=== PATIENT | male | born 1970 | race Caucasian/White ===

== ENCOUNTER → 2020-07-31 00:32 | Outpatient (CLI) | payer OTHER, SELFPAY ==
[2020-07-31 18:19] LABS: SARS-CoV-2 RNA PCR Negative
== END ==
PROVIDERS: Physician Assistant Medical; PCP Family Medicine; Visit Provider Internal Medicine Critical Care Medicine
DX: Z20.822 Contact with and (suspected) exposure to COVID-19 (principal); R68.89 Other general symptoms and signs
CPT/HCPCS: C9803; U0003; U0005

== ENCOUNTER 2020-08-04 09:22 | Outpatient (CLI) | payer OTHER, SELFPAY ==
--- NOTE | 2020-08-14 12:49 | WPDSLEEPSTUD ---
Sleep Study Date of Study: 08/04/20 Ordering Provider: Heriberto García MD Interpreting Physician: Denisa Zazueta MD Sleep Study Type: Split Polysomnogram Height: 1.8 m Weight: 118.388 kg Body Mass Index: 36.3 Neck Circumference: 48.26 cm Dequincy: 19 Reason for Sleep Study Poor quality sleep after COVID, waking up every few hours, Sleep History Cortez Brennan is a 49 year old male who has had several months of poor quality sleep after COVID. He wakes up every few hours feeling wide awake. He frequently snores and is frequently loud enough that others complain about it. He frequently wakes up at night with heartburn, belching or coughing. He frequently wakes up feeling short of breath. He frequently has trouble sleeping with a cold. He frequently wakes up gasping for breath during the night and has breathing problems at night observed by others. He rarely sweats excessively at night. He occasionally notices his heart pounding or beating irregularly and night. He occasionally falls asleep during the day, occasionally involuntarily rarely while driving. He does not fall asleep during physical effort. He does not have loss of muscle tone was strong emotion. He does not have problems during the day due to excessive sleepiness. 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 He does not feel paralyzed on waking or falling asleep. He frequently has vivid dreamlike scenes upon awakening or falling asleep. He does not feel afraid to go to sleep. He does not have nightmares. He occasionally remembers his dreams. He frequently has racing thoughts. He does not feel sad or depressed. He occasionally has anxiety. He rarely has muscular tension. He occasionally notices parts of his body jerking. He occasionally kicks at night. He does not have crawling or aching feelings in his legs or have any kind of leg pain at night. He does not have morning jaw pain. He does not grind his teeth during sleep. He occasionally has bothered by pain during the day. He rarely is awakened by pain at night. He occasionally wakes up feeling stiff in the morning with sore achy muscles and pain in the neck and spine. He frequently has morning headaches. He has nasal allergies in the spring and has had sinus surgery. He also has heartburn. Normal bedtime is between 10:00 p.m. and 12 midnight, taking 5 minutes but sometimes up to an hour to fall asleep. He typically wakes 3-4 times at night. He is able to return to sleep within 5 minutes but occasionally taking up to 45 minutes. While awake, he goes to the bathroom, gets a drink and sometimes a snack. He wakes between 6:00-7:00 a.m. not always refreshed. He does take naps in the afternoon or evening. A short nap is sometimes refreshing. He is usually drowsy in the morning for 1 hour or longer. Habits: Never smoked tobacco. Caffeine 2-3 per day. One alcoholic beverage a day. No recreational drugs. [facility] Past Medical History Medical History (Updated 08/14/20 @ 13:28 by Denisa Zazueta MD) Acid reflux COVID-19 Hyperlipidemia Seasonal allergies Surgical History Surgical History (Updated 08/14/20 @ 13:00 by Denisa Zazueta MD) History of appendectomy History of sinus surgery Family History Family History Father Family history of diabetes mellitus in first degree relative Family history of coronary artery disease Diabetes mellitus Heart disease Mother Colon cancer Acute myocardial infarction Social History Social History Smoking status: Never smoker Smokeless tobacco user: chewing tobacco Alcohol intake: current Substance use: never 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
[2020-08-14 13:41] VITALS: BMI 36.3
== END 2020-08-04 09:23 | disposition home or self-care (01) ==
LOC: ANHCSM 09:22
PROVIDERS: PCP Family Medicine; Visit Provider Family Medicine
DX: G47.10 Hypersomnia, unspecified (principal); G47.33 Obstructive sleep apnea (adult) (pediatric)
CPT/HCPCS: 95811

== ENCOUNTER 2021-01-30 15:53 | Emergency (ER) | payer OTHER, SELFPAY ==
[2021-01-30 16:06] VITALS: BP 111/79; PULSE 72; RESP 16; TEMP 36; O2SAT 99
--- NOTE | 2021-01-30 17:06 | ED.URI ---
HPI - URI/Sore Throat General Chief Complaint: Upper Respiratory Infection Stated Complaint: runny nose/cough Time Seen by Provider: 01/30/21 17:06 Source: patient Mode of arrival: ambulatory Limitations: no limitations History of Present Illness HPI Narrative: Cortez Rao is a 50 yo male with PMH of high cholesterol who comes to [facility] stating that he wants a Covid test. He has been treated by his primary care physician for a sinus infection with a Z-Harley because he gets the symptoms and wanted to get ahead of it . Patient son's girlfriend was diagnosed positive with being asymptomatic and now he wants a Covid test. We do not test asymptomatic individuals he was set up for a test at [facility] in the drive-through where he will get PCR Related Data Home Medications Medication Instructions Recorded Confirmed rosuvastatin 1 mg PO DAILY 01/30/21 01/30/21 Allergies Allergy/AdvReac Type Severity Reaction Status Date / Time levofloxacin AdvReac Severe Unknown Verified 01/30/21 16:17 rosuvastatin [From Crestor] AdvReac Intermediate Cramping Verified 01/30/21 16:17 of the Muscles Review of Systems Review of Systems: CONSTITUTIONAL: Denies fever, chills, sweats. EYES: Denies visual changes, redness, discharge. ENT: Denies rhinorrhea, congestion, sore throat, otalgia. CARDIOVASCULAR: Denies chest pain, palpitations, edema. RESPIRATORY: Denies dyspnea, wheezing, cough GASTROINTESTINAL: Denies abdominal pain, nausea, vomiting, diarrhea. GENITOURINARY: Denies dysuria, hematuria, abnormal discharge SKIN: Denies rash or itching. NEUROLOGIC: Denies numbness, or focal weakness. PSYCHIATRIC: Denies anxiety or depression. Once a Covid test [facility] Past Medical History Medical History Acid reflux COVID-19 Hyperlipidemia Seasonal allergies Surgical History Surgical History History of appendectomy History of sinus surgery Family History Family History Father Family history of diabetes mellitus in first degree relative Family history of coronary artery disease Diabetes mellitus Heart disease Mother Colon cancer Acute myocardial infarction Social History Social History Smokeless tobacco user: chewing tobacco Second hand tobacco smoke exposure: No Alcohol intake: current Substance use: never Substance use type: does not use 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 There is no relevant family history pertinent to the presenting complaint. Exam Narrative: GENERAL: This is a well-nourished, well-developed patient, in no distress. HEAD: normocephalic, atraumatic. EYES: Sclera clear/white. Vision is grossly intact. EARS: External ears normal, auditory canals clear and without drainage, TMs normal without perforation. Hearing grossly intact. NOSE: External nose normal without nasal discharge, nares without redness, no rhinorrhea. Sounds somewhat congested THROAT: Mucous membranes moist, posterior pharynx pink NECK: Neck supple, CARDIOVASCULAR: Regular rate and rhythm without murmurs, gallops, or rubs. RESPIRATORY: Clear to auscultation. Breath sounds equal bilaterally. No wheezes, rales, or rhonchi. GASTROINTESTINAL: Abdomen soft, SKIN: warm, intact with no suspicious lesions or rash, good texture and turgor. NEURO: awake, alert, and oriented to person, place and time. There were no obvious focal neurologic abnormalities. Steady gait EXTREMITIES: Normal range of motion. BACK: without deformity Course Course Emergency Course: Patient comes here for Covid testing
== END 2021-01-30 17:20 | disposition home or self-care (01) ==
PROVIDERS: Emergency Provider Nurse Practitioner; PCP Family Medicine
DX: R05 Cough (principal); Z20.822 Contact with and (suspected) exposure to COVID-19; F17.220 Nicotine dependence, chewing tobacco, uncomplicated; K21.9 Gastro-esophageal reflux disease without esophagitis; E78.5 Hyperlipidemia, unspecified
CPT/HCPCS: 99211; G0463

== ENCOUNTER 2021-05-17 00:51 | Day surgery (SDC) | payer OTHER, SELFPAY ==
[2021-05-04 13:33] VITALS: BMI 38.9
[2021-05-17 06:54] VITALS: BP 158/108; PULSE 65; RESP 16; TEMP 36.1; O2SAT 95; BMI 40.5
[2021-05-17] MEDS: LACTATED RINGERS 1,000 ML 150 ML IV CONT (07:03)
--- NOTE | 2021-05-17 07:08 | WPDANESEPPF ---
Anes - Initial Pre Proc Eval Procedure: Operation Date: 05/17/21 08:00 Proposed Procedures p Screening Colonoscopy - Osvaldo Rodriguez MD Date/Time: 05/17/21 07:08 Surgeon: Osvaldo Rodriguez MD Pre Op Diagnosis: family hx of colon ca Patient Data Age: 50 Gender: M Height: 1.78 m Weight: 128.1 kg Last Vital Signs Temp 96.9 F L 05/17/21 06:54 Pulse 65 05/17/21 06:54 Resp 16 05/17/21 06:54 BP 158/108 H 05/17/21 06:54 Pulse Ox 95 05/17/21 06:54 Allergies Allergy/AdvReac Type Severity Reaction Status Date / Time levofloxacin AdvReac Severe Unknown Verified 05/04/21 13:32 rosuvastatin [From Crestor] AdvReac Intermediate Cramping Verified 05/04/21 13:32 of the Muscles Home Medications Medication Instructions Recorded Confirmed Type ezetimibe 10 mg tablet 10 mg PO DAILY #90 tablet 03/24/21 05/04/21 Rx ascorbic acid (vitamin C) 500 mg PO DAILY 05/04/21 05/04/21 History multivit with min-folic acid 1 tablet PO DAILY 05/04/21 05/04/21 History [Adult One Daily Multivitamin] Patient hx anesthesia problems: none Family hx anesthesia problems: none Results Review: All pre-operative results and documents have been reviewed as part of the pre-operative evaluation. [facility] Past Medical History Medical History Acid reflux COVID-19 Hyperlipidemia Seasonal allergies Surgical History Surgical History History of appendectomy History of sinus surgery Family History Family History Father Family history of diabetes mellitus in first degree relative Family history of coronary artery disease Diabetes mellitus Heart disease Mother Colon cancer Acute myocardial infarction Social History Social History (Updated 05/17/21 @ 07:12 by Tim Sorensen MD) Smoking status: Never smoker Tobacco type: smokeless tobacco Smokeless tobacco user: chewing tobacco Second hand tobacco smoke exposure: No Alcohol intake: current Drinks per week: 6 Substance use: never Substance use type: does not use Living arrangements: with family 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 Informed Consent: The patient's anesthetic plan and its attendant risks and benefits were discussed with the patient/family/POA. Questions were solicited and answers provided to the satisfaction of the patient/family/POA.
--- NOTE | 2021-05-17 07:24 | PM.HPGS ---
History of Present Illness History of Present Illness Consent: Risks, benefits, and alternatives have been discussed and questions answered. Patient agrees to proceed with procedure. Chief complaint: family hx of colon ca Narrative: Cortez Brennan is a 50 year old male here for first colonoscopy, mother had colon cancer. Review of Systems Constitutional: Constitutional: Denies headache(s) and Denies weakness Eyes: Eyes: Denies blurry vision ENT: Reports Normal hearing present, Denies headache(s) and Denies neck pain Cardiovascular: Cardiovascular: Denies chest pain and Denies dyspnea Respiratory: Respiratory: Denies dyspnea Gastrointestinal: Gastrointestinal: Reports no additional gastrointestinal complaints Genitourinary: Genitourinary: Denies dysuria Musculoskeletal: Musculoskeletal: Denies neck pain Integumentary/Breasts: Skin/Breast: Denies dry skin Neurologic: Reports Normal hearing present, Denies headache(s) and Denies weakness Psychiatric: Psychiatric: Denies anxiety Endocrine: Endocrine: Denies change in body appearance Hematologic/Lymphatic: Hematologic/Lymphatic: Denies easy bleeding Allergic/Immunologic: Allergic/Immunologic: Denies urticaria PMFSH Past Medical History Medical History Acid reflux COVID-19 Hyperlipidemia Seasonal allergies Surgical History Surgical History History of appendectomy History of sinus surgery Family History Family History Father Family history of diabetes mellitus in first degree relative Family history of coronary artery disease Diabetes mellitus Heart disease Mother Colon cancer Acute myocardial infarction Social History Social History (Updated 05/17/21 @ 07:12 by Tim Sorensen MD) Smoking status: Never smoker Tobacco type: smokeless tobacco Smokeless tobacco user: chewing tobacco Second hand tobacco smoke exposure: No Alcohol intake: current Drinks per week: 6 Substance use: never Substance use type: does not use Living arrangements: with family 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[employer] Gender identity (if verbalized by the patient): Male Spiritual care concerns: No Meds Home Medications and Allergies Home Medications Medication Instructions Recorded Confirmed Type ezetimibe 10 mg tablet 10 mg PO DAILY #90 tablet 03/24/21 05/04/21 Rx ascorbic acid (vitamin C) 500 mg PO DAILY 05/04/21 05/04/21 History multivit with min-folic acid 1 tablet PO DAILY 05/04/21 05/04/21 History [Adult One Daily Multivitamin] Allergies Allergy/AdvReac Type Severity Reaction Status Date / Time levofloxacin AdvReac Severe Unknown Verified 05/04/21 13:32 rosuvastatin [From Crestor] AdvReac Intermediate Cramping Verified 05/04/21 13:32 of the Muscles Vital Signs Vital Signs - 24 hr 05/17/21 06:54 Temperature 96.9 F L Pulse Rate 65 Respiratory Rate 16 Blood Pressure 158/108 H Pulse Oximetry 95 Exam Const: General: comfortable and no acute distress HENMT: General nose exam: Normal nares present Eyes: General: appearance normal, both eyes and all related structures Neck: Neck: no JVD Resp: Auscultation: clear to auscultation bilaterally Cardio: Rate: regular rate Rhythm: regular rhythm GI: Inspection: non-distended GI Palp: Yes Soft to palpation Skin: General skin exam: normal color Neuro: General: gait normal Speech: normal speech Extrem: General: normal to inspection Psych: Mental Status: mental status grossly normal Assessment and Plan Assessment and plan (1) Screening for colon cancer: Code(s): Z12.11 - Encounter for screening for malignant neoplasm of colon Status: Acute Assessment and Plan: colonoscopy
[2021-05-17 07:44] VITALS: BP 138/88; PULSE 66; RESP 16; O2SAT 96
[2021-05-17 07:54] VITALS: BP 143/83; PULSE 64; RESP 19; O2SAT 97
[2021-05-17 08:04] VITALS: BP 147/79; PULSE 72; RESP 15; O2SAT 99
== END 2021-05-17 08:13 | disposition home or self-care (01) ==
PROVIDERS: PCP Family Medicine; Visit Provider Internal Medicine Gastroenterology
PROC: 0DJD8ZZ Inspection of Lower Intestinal Tract, Via Natural or Artificial Opening Endoscopic (ICD-10-PCS; CPT 45378; principal; 2021-05-17 08:00)
DX: Z12.11 Encounter for screening for malignant neoplasm of colon (principal); Z80.0 Family history of malignant neoplasm of digestive organs; E78.5 Hyperlipidemia, unspecified; Z86.16 Personal history of COVID-19; F17.220 Nicotine dependence, chewing tobacco, uncomplicated; E66.01 Morbid (severe) obesity due to excess calories; Z68.41 Body mass index [BMI] 40.0-44.9, adult
CPT/HCPCS: 45378; J2704; J7120

== ENCOUNTER 2022-04-29 18:22 | Emergency (ER) | payer OTHER, SELFPAY ==
--- NOTE | 2022-04-29 18:38 | ED.URI ---
HPI - URI/Sore Throat General Chief Complaint: Upper Respiratory Infection Stated Complaint: uri Time Seen by Provider: 04/29/22 18:42 Source: patient Mode of arrival: ambulatory Limitations: no limitations History of Present Illness HPI Narrative: Cortez is a 51-year-old male patient presenting to the clinic today with complaints cough, runny nose, fever, body aches, and nasal congestion x1 day. He reports that his symptoms began yesterday. Had taken at home COVID testing that was negative today reports that he has been exposed to lot of people with flu and strep. MD elicited complaint: fever, cough, sore throat, nasal congestion and other ( body aches and chills) Related Data Home Medications Medication Instructions Recorded Confirmed ascorbic acid (vitamin C) 500 mg 500 mg PO DAILY 05/04/21 02/17/22 tablet multivitamin with minerals-folic 1 tablet PO DAILY 05/04/21 02/17/22 acid 0.4 mg tablet Allergies Allergy/AdvReac Type Severity Reaction Status Date / Time levofloxacin AdvReac Severe Unknown Verified 02/17/22 12:43 rosuvastatin [From Crestor] AdvReac Intermediate Cramping Verified 02/17/22 12:43 of the Muscles Review of Systems Review of Systems: Pertinent positives per HPI. Patient denies any rash, headache, visual changes, dizziness, shortness of breath, chest pain, palpitations, nausea, vomiting, diarrhea, constipation, abdominal pain, or any urinary issues. [facility] Past Medical History Medical History Acid reflux Body mass index (BMI) of 40.1 to 44.9 in adult COVID-19 Hyperlipidemia Seasonal allergies Surgical History Surgical History History of appendectomy History of sinus surgery Family History Family History Father Family history of diabetes mellitus in first degree relative Family history of coronary artery disease Diabetes mellitus Heart disease Mother Colon cancer Acute myocardial infarction Social History Social History Smoking status: Never smoker Tobacco type: smokeless tobacco Smokeless tobacco user: chewing tobacco Second hand tobacco smoke exposure: No Alcohol intake: current Drinks per week: 6 Substance use: never Substance use type: does not use 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 There is no relevant family history pertinent to the patient complaint. Exam Narrative: General: Well-developed, well nourished, in no apparent distress Head: Normocephalic, atraumatic Eyes: Pupils equally round and reactive to light bilaterally, EOM intact, sclera and conjunctive clear, no discharge, lids normal Ears: TMs intact and dull, ear canals clear, no drainage, grossly hearing normal. Nose: Nares patent, clear nasal discharge, no inflammation, no sinus tenderness. Mouth: Oral pharynx without lesions or masses, good dentition, MMM. Postnasal drip Neck: Supple, trachea midline, no enlargement of anterior or posterior cervical nodes, no thyroid masses or goiter palpable. Cardio: Regular rate and rhythm, s1 and s2 normal, no murmur appreciated. Resp: Clear to auscultation bilaterally, no rhonchi, rales, wheezing or rubs Course Course Emergency Course: Portions of this record may have been created with voice recognition software. Level of Care: Express Care Visit Vital Signs Vital signs: Vital signs reviewed MDM - URI/Sore Throat MDM Narrative Medical decision making narrative: at the time of visit patient is resting comfortably
[2022-04-29 18:39] VITALS: BP 143/86; PULSE 83; RESP 18; TEMP 38.1; O2SAT 97
== END 2022-04-29 18:46 | disposition home or self-care (01) ==
PROVIDERS: Emergency Provider Nurse Practitioner Family; PCP Family Medicine
DX: J10.1 Influenza due to other identified influenza virus with other respiratory manifestations (principal); E78.5 Hyperlipidemia, unspecified
CPT/HCPCS: 87081; 87804; 87880; 99213; G0463

== ENCOUNTER 2023-12-19 07:57 | Outpatient (CLI) | payer OTHER, SELFPAY ==
--- NOTE | ~2023-12-19 | US_ITS ---
EXAMINATION: US abdomen limited DATE: 12/19/2023 09:12 INDICATION: Right upper quadrant abdominal pain TECHNIQUE: Multiple grayscale and Doppler ultrasound images of the abdomen were obtained. COMPARISON: None FINDINGS: The pancreatic head and body are normal in appearance. The pancreatic tail is not visualized. Liver has normal contour, with a smooth surface. There is increased parenchymal echogenicity and coarsened echotexture consistent with diffuse hepatic steatosis. Small region of more hypoechoic likely focal f atty sparing in typical location along the gallbladder fossa. No intrahepatic biliary duct dilation suspected. Portal venous flow was seen in the hepatopetal, normal direction and has normal Doppler wa veform. The gallbladder is normal in appearance. There is no cholelithiasis. The common bile duct me asures 3-4 mm, which is normal. Sonographic Escalera sign was reported as negative by the server assistant. The visualized proximal inferior vena cava and aorta are unremarkable. Right kidney measures 13.1 x 7 .2 x 5.5 cm. There are a pair of cystic structures at the hilum of the right kidney the larger and mo re cephalad measuring 2.8 x 2.5 x 2.2 cm and the smaller and more caudal measuring 2.4 x 2.3 x 2.2 cm . No evident communication between the cystic lesions or to the ureter and no evident dilated renal c alyces which would favor independent peripelvic cysts over hydronephrosis. IMPRESSION: 1. A couple 2.8 and 2.4 cm cystic structures in the right renal hilum with appearance favoring peripe lvic cysts over hydronephrosis. Could consider CT angiogram for more definitive determination if ther e is clinical concern for hydronephrosis. 2. Otherwise normal right upper quadrant ultrasound. Reviewed, dictated and finalized at location B. IMPRESSION: 1. A couple 2.8 and 2.4 cm cystic structures in the right renal hilum with appe arance favoring peripelvic cysts over hydronephrosis. Could consider CT angiogr am for more definitive determination if there is clinical concern for hydroneph rosdawson. 2. Otherwise normal right upper quadrant ultrasound.
== END 2023-12-19 07:58 | disposition home or self-care (01) ==
PROVIDERS: PCP Family Medicine; Visit Provider Family Medicine
DX: R10.11 Right upper quadrant pain (principal)
CPT/HCPCS: 76705

== ENCOUNTER 2025-01-30 00:59 | Day surgery (SDC) | payer OTHER, SELFPAY ==
[2025-01-16 08:53] VITALS: BMI 40.9
--- OUTSIDE RECORDS SUMMARY | 2025-01-30 01:01 | XMS_ITS | Clinical Summary ---
Author Organization [facility] Address [address] [place] [address] Care Team Providers Care Digital Strategist Name Role Phone Unavailable Primary Care Provider Unavailabl e Social History Tobacco Use Types Packs/Day Years Used Date Smoking Tobacco: Never Assessed Sex and Gender Information Value Date Recorded Sex Assigned at Not on file Legal Sex Male 8:29 PM CDT Gender Identity Not on file Sexual Orientation Not on file Plan of Treatment Health Maintenance Due Date Last Done Comments Colorectal Cancer Screening Colonoscopy (10 Years) 1968 Annual Physical 11/20/1971 Hepatitis C 1986 DTaP, Tdap and Td Vaccines ( 1 - Tdap) 11/20/1987 Hepatitis B Vaccines (1 of 3 - 19+ 3-dose series) 11/20/1987 Pneumococcal Vaccine: 50+ Ye ars (1 of 1 - PCV) 2018 Zoster Vaccines (1 of 2) 2018 COVID-19 Vaccine (2023-2 5 season) 2024 Meningococcal B Vaccine Aged Out No l onger eligible based on patient's age to complete this topic Meningococcal Vaccine Aged Out No roly shayne eligible based on patient's age to complete this topic RSV Immunizations Under 20 Months Aged Out No longer eligible based on patient's age to complete this topic
--- OUTSIDE RECORDS SUMMARY | 2025-01-30 01:01 | XMS_ITS | Clinical Summary ---
Author Organization [facility] Address [address] [place] [address] Care Team Providers Care Senior Quality Assurance Engineer Name Role Phone Heriberto García MD Primary Care Provider [phone] Source Comments [facility],non-owned Affiliates and Associated Physician Practices is amultiple site organization consisting of ambulatory clinics and hospital sitesin [place], [place], [place] and [place]. This disclosure is being madepursuant to the Care Everywhere program and may not contain all information available regarding this patient. 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 Gender Identity Not on file Sexual Orientation Not on file Plan of Treatment Health Maintenance Due Date Last Done Comments COLOGUARD (AGES 45-75) - COL ON CA SCREENING 1968 COLON MONITORING 1968 COLONOSCOPY - COLON CA SCREENING 1968 CT COLONOGRAPHY - COLON CA SCREENING 1968 Colorectal Cancer Screening 1968 FIT - COLON CA SCREENING 1968 FLEX SIG - COLON CA SCREENING 1968 LIPID TESTING 1968 HIV SCREENING 11/20/1983 HEPATITIS C SCREENING 11/15/1986 DTAP/TDAP/TD VACCINES (1 - Tdap) 11/20/1987 HEPATITIS B VACCINE (1 of 3 - 19+ 3-dose series) 11/20/1987 PNEUMOCOCCAL VACCINE 50+ (1 of 1 - PCV) 2018 ZOSTER VACCINE (1 of 2) 2018 COVID-19 VACCINE ( - 2023-2 5 season) 2024 DEPRESSION SCREENING 06/19/2024 INFLUENZA VACCINE (#1) 2025 HIB VACCINE Aged Out No longer eligi ble based on patient's age to complete this topic HPV VACCINE Aged Out No longer eligi ble based on patient's age to complete this topic MENINGOCOCCAL (Group B) VACC INE SHARED DECISION-MAKING Aged Out No longer eligibl e based on patient's age to complete this topic MENINGOCOCCAL GROUPS A/C/Y/W VACCINE Aged Out No longer eligible b ased on patient's age to complete this topic Insurance [facility] Care Teams Senior Quality Assurance Engineer Relationship Specialty Start Date End Date Heriberto García MD [address] [place] [address] PCP - General Family Medicine 11/03/15
--- NOTE | 2025-01-30 08:55 | WPDANESEPPF ---
Anes - Initial Pre Proc Eval Procedure: Operation Date: 01/30/25 10:30 Proposed Procedures p Esophagogastroduodenoscopy - Osvaldo Rodriguez MD Date/Time: 01/30/25 08:55 Surgeon: Osvaldo Rodriguez MD Pre Op Diagnosis: Food in larynx causing asphyxiation, initial encou Patient Data Age: 54 Gender: M Height: 1.78 m Weight: 129.5 kg Allergies Allergy/AdvReac Type Severity Reaction Status Date / Time levofloxacin AdvReac Severe Unknown Verified 01/30/25 09:16 rosuvastatin (From Crestor) AdvReac Intermediate Cramping Verified 01/30/25 09:16 of the Muscles Home Medications ?Medication ?Instructions ?Recorded ?Confirmed ?Type multivitamin with minerals-folic 1 tablet PO DAILY 05/04/21 01/30/25 History acid 0.4 mg tablet atorvastatin 10 mg tablet 10 mg PO DAILY 04/09/24 01/30/25 History lisinopril 5 mg tablet 5 mg PO DAILY #90 tabs 09/03/24 01/30/25 Rx ezetimibe 10 mg tablet (Zetia) 10 mg PO DAILY #90 tabs 10/17/24 01/30/25 Rx omeprazole 20 mg tablet,delayed 20 mg PO DAILY 01/16/25 01/30/25 History release Patient hx anesthesia problems: none Family hx anesthesia problems: none Results Review: All pre-operative results and documents have been reviewed as part of the pre-operative evaluation. [facility] Past Medical History Medical History (Updated 01/30/25 @ 08:55 by Shaji Manzo DO) Obstructive sleep apnea (~07/2020) Hypertension Vomiting Choking due to food (regurgitated) Cough Sinusitis Cyst of right kidney Left knee pain RUQ pain Elevated blood pressure reading Otitis externa Body mass index (BMI) of 40.1 to 44.9 in adult Encounter for laboratory testing for COVID-19 virus Otitis media Seasonal allergies Acid reflux Hyperlipidemia Otitis externa Acute dysfunction of eustachian tube COVID-19 Screening, lipid Surgical History Surgical History History of sinus surgery History of appendectomy Family History Family History Father Family history of diabetes mellitus in first degree relative Family history of coronary artery disease Diabetes mellitus Heart disease Mother Colon cancer Acute myocardial infarction Social History Social History Smoking status: Current some day smoker Tobacco type: smokeless tobacco Smokeless tobacco user: chewing tobacco Second hand tobacco smoke exposure: No Alcohol intake: current Drinks per week: 6 Substance use: never Substance use type: does not use Living arrangements: with family Occupation/Education: occupation 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[employer] Gender identity (if verbalized by the patient): Male Spiritual care concerns: No Anes - Eval Final PreProcedure Day of Procedure 01/30/25 08:55 Patient weight: morbidly obese Heart: regular rate and rhythm Lungs: clear to auscultation Airway: Mallampati scale class II Neurological: alert and oriented Last oral intake: >/= 8 hours ASA classification: III Emergent: no Anesthetic plan: proceed Anesthesia type and monitoring: general GIVS and standard monitoring Results Review: All pre-operative results and documents have been reviewed as part of the pre-operative evaluation. Informed Consent: The patient's anesthetic plan and its attendant risks and benefits were discussed with the patient/family/POA. Questions were solicited and answers provided to the satisfaction of the patient/family/POA.
[2025-01-30 09:17] VITALS: BP 128/78; PULSE 53; RESP 18; TEMP 36.9; O2SAT 98
[2025-01-30] MEDS: LACTATED RINGERS 1,000 ML 150 ML IV CONT (09:25)
--- NOTE | 2025-01-30 10:19 | PM.HPGS ---
History of Present Illness History of Present Illness Consent: Risks, benefits, and alternatives have been discussed and questions answered. Patient agrees to proceed with procedure. Chief complaint: Food in larynx causing asphyxiation, initial encou Narrative: Cortez Brennan is a 54 year old male here for egd, intermittent choking sensation at throat level. Review of Systems Review of Systems: All systems reviewed & are unremarkable except as noted in HPI and below PMFSH Past Medical History Medical History (Updated 01/30/25 @ 10:20 by Osvaldo Rodriguez MD) Choking Obstructive sleep apnea (~07/2020) Hypertension Vomiting Choking due to food (regurgitated) Cough Sinusitis Cyst of right kidney Left knee pain RUQ pain Elevated blood pressure reading Otitis externa Body mass index (BMI) of 40.1 to 44.9 in adult Encounter for laboratory testing for COVID-19 virus Otitis media Seasonal allergies Acid reflux Hyperlipidemia Otitis externa Acute dysfunction of eustachian tube COVID-19 Screening, lipid Surgical History Surgical History History of sinus surgery History of appendectomy Family History Family History Father Family history of diabetes mellitus in first degree relative Family history of coronary artery disease Diabetes mellitus Heart disease Mother Colon cancer Acute myocardial infarction Social History Social History Smoking status: Current some day smoker Tobacco type: smokeless tobacco Smokeless tobacco user: chewing tobacco Second hand tobacco smoke exposure: No Alcohol intake: current Drinks per week: 6 Substance use: never Substance use type: does not use Living arrangements: with family Occupation/Education: occupation 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[employer] Gender identity (if verbalized by the patient): Male Spiritual care concerns: No Meds Home Medications and Allergies Home Medications ?Medication ?Instructions ?Recorded ?Confirmed ?Type multivitamin with minerals-folic 1 tablet PO DAILY 05/04/21 01/30/25 History acid 0.4 mg tablet atorvastatin 10 mg tablet 10 mg PO DAILY 04/09/24 01/30/25 History lisinopril 5 mg tablet 5 mg PO DAILY #90 tabs 09/03/24 01/30/25 Rx ezetimibe 10 mg tablet (Zetia) 10 mg PO DAILY #90 tabs 10/17/24 01/30/25 Rx omeprazole 20 mg tablet,delayed 20 mg PO DAILY 01/16/25 01/30/25 History release Allergies Allergy/AdvReac Type Severity Reaction Status Date / Time levofloxacin AdvReac Severe Unknown Verified 01/30/25 09:16 rosuvastatin (From Crestor) AdvReac Intermediate Cramping Verified 01/30/25 09:16 of the Muscles Vital Signs Vital Signs - 24 hr 01/30/25 09:17 Temperature 98.5 F Pulse Rate 53 L Respiratory Rate 18 Blood Pressure 128/78 Pulse Oximetry 98 Oxygen Delivery Room Air Exam Const: General: comfortable and no acute distress HENMT: Face/Nose/Sinus: Normal nares present Eyes: General: appearance normal, both eyes and all related structures Neck: Neck: no JVD Resp: Auscultation: clear to auscultation bilaterally Cardio: Rate: regular rate Rhythm: regular rhythm GI: Inspection: non-distended GI Palp: Yes Soft to palpation Skin: General skin exam: normal color Neuro: General: gait normal Speech: normal speech Extrem: General: normal to inspection Psych: Mental Status: mental status grossly normal Assessment and Plan Assessment and plan (1) Choking: Code(s): T17.308A - Unspecified foreign body in larynx causing other injury, initial encounter Status: Acute Assessment and Plan: egd
[2025-01-30] MEDS: BENZOCAINE (*SP) 60 ML SPRAY CAN (HURRICAINE) 1 SPRAY MUCOUS MEM (10:23)
--- NOTE | 2025-01-30 10:27 | S_PTH ---
PATIENT: Cortez Brennan LOC: [facility]#:[id number] AGE/SX: 54/M ROOM: RE01/30/[address]: Osvaldo Rodriguez MD : 1970 BED: DIS: 01/30/2025 SPEC #: [id number] RECD: 01/30/25 13:29 STATUS: SILVA REAlex #: [id number] SAMIR: 01/30/25 10:[address]: Osvaldo Rodriguez DEPT: [facility] Surgical RECD BY: Raven Ribeiro ENTERED: 01/30/25 13:30 SP TYPE: Surgical OTHR DR: Heriberto García MD Tissues: A - Gastric Biopsy B - Esophageal Biopsy C - Esophageal Biopsy Procedures: Hematoxylin and Eosin Stain Gross and Microscopic Level 4
[2025-01-30 10:36] VITALS: BP 116/76; PULSE 60; RESP 13; O2SAT 96
[2025-01-30 10:46] VITALS: BP 124/74; PULSE 64; RESP 13; O2SAT 96
[2025-01-30 10:56] VITALS: BP 108/82; PULSE 60; RESP 13; O2SAT 96
== END 2025-01-30 11:05 | disposition home or self-care (01) ==
PROVIDERS: PCP Family Medicine; Visit Provider Internal Medicine Gastroenterology
PROC: 0DJ08ZZ Inspection of Upper Intestinal Tract, Via Natural or Artificial Opening Endoscopic (ICD-10-PCS; CPT 43239; principal; 2025-01-30 10:30)
DX: K20.0 Eosinophilic esophagitis (principal); K31.89 Other diseases of stomach and duodenum; E78.5 Hyperlipidemia, unspecified; I10 Essential (primary) hypertension; G47.33 Obstructive sleep apnea (adult) (pediatric); F17.220 Nicotine dependence, chewing tobacco, uncomplicated; E66.01 Morbid (severe) obesity due to excess calories; Z68.41 Body mass index [BMI] 40.0-44.9, adult; Z98.890 Other specified postprocedural states; Z80.0 Family history of malignant neoplasm of digestive organs; Z82.49 Family history of ischemic heart disease and other diseases of the circulatory system
CPT/HCPCS: 43239; 88305; J2003; J2704; J7120